=== PATIENT | female | born 1940 | race Two or more races ===

== ENCOUNTER 2022-03-19 05:28 | Day surgery (SDC) | payer OTHER ==
[~2022-03-19 05:28] MED LIST: ADULT LOW DOSE81 M1 PO; CARVEDILOL12.5 M1 PO; CRESTOR10 MG PO; FARXIGA10 MG PO; GLIMEPIRIDE1 MG PO; GLUMETZA500 MG PO; LEVOTHYROXINE25 MCG PO; PROTONIX40 MG PO; ZESTRIL20 MG PO; ZETIA10 MG PO; [UNRECOGNIZED DRUG - OTHER] PO; [UNRECOGNIZED DRUG - OTHER] PO
[2022-03-19] MEDS ORDERED: CEPHALEXIN250 M1 PO (13:03)
[2022-03-19] MEDS ORDERED: ULTRACET PO (13:04)
== END 2022-03-19 15:20 | disposition home or self-care (01) ==
LOC: CIR.AMB 05:28
PROVIDERS: ATTEND Obstetrics & Gynecology Gynecology
DX: N32.81 Overactive bladder (principal); N39.41 Urge incontinence; Z88.8 Allergy status to other drugs, medicaments and biological substances; I10 Essential (primary) hypertension; Z86.16 Personal history of COVID-19; E11.9 Type 2 diabetes mellitus without complications; Z79.84 Long term (current) use of oral hypoglycemic drugs
CPT/HCPCS: 64581; 64590; 95972; C1778; L8679